=== PATIENT | male | born 2000 | race African-American/Black ===

== ENCOUNTER 2018-01-03 19:25 | Emergency (ER) | payer MEDICAID ==
[~2018-01-03] VITALS: Ht 188 cm; Wt 93.0 kg
[2018-01-03 20:58] LABS: Basophils # (auto) 0 uL; Basophils % (auto) 0.3 % (0.0-2.0); Eosinophils # (auto) 0 uL; Eosinophils % (auto) 0.4 % (0.0-7.0); Hematocrit 48.8 % (41.0-53.0); Hemoglobin 16.6 g/dL (13.5-17.5); Lymphocytes # (auto) 1.4 uL; Lymphocytes % (auto) 16.9 % (10.0-50.0); Mean Corpuscular Hgb Conc. 34.1 g/dL (32.0-36.0); Mean Corpuscular Volume 91.1 fL (80.0-100.0); Monocytes # (auto) 1.1 uL; Monocytes % (auto) 12.3 % (0.0-12.0); Neutrophils % (auto) 70.1 % (37.0-80.0); Platelet Count (auto) 264 10^3/uL (140-450); Red Blood Cells 5.36 10^6/uL (4.5-5.90); Red Cell Distribution Width 13.7 % (11.8-14.3); White Blood Cell 8.6 10^3/uL (4.4-10.8)
[2018-01-03 21:21] LABS: Albumin 4.1 g/dL (3.4-5.0); BUN/Creatinine Ratio 13.3; Bilirubin, Total 0.4 mg/dL (0.2-1.0); Calcium 8.7 mg/dL (8.5-10.1); Potassium 3.8 mmol/L (3.5-5.1); Total Protein 7.5 g/dL (6.4-8.2)
[2018-01-04 00:01] LABS: Urine WBC None Seen /hpf (0 - 3)
[2018-01-04 00:18] LABS: Urine Bacteria NONE SEEN /hpf (None Seen); Urine Blood Negative /uL (Negative); Urine Specific Gravity 1.032 (1.001-1.035)
[2018-01-04] MEDS ORDERED: FAMOTIDINE (10MG/ML) 2ML VL IV ONE (04:30)
[2018-01-04] MEDS ORDERED: SODIUM CHLORIDE 0.9% 1,000 ML IV ONE (04:30)
[2018-01-04 05:29] VITALS: BP 110/66
[2018-01-04] MEDS ORDERED: metroNIDAZOLE 500 MG TAB PO ONE (05:30)
== END 2018-01-04 05:20 | disposition home or self-care (01) ==
LOC: ER 19:25
DX: K29.70 Gastritis, unspecified, without bleeding (principal); T78.40XA Allergy, unspecified, initial encounter
CPT/HCPCS: 36415; 74176; 80053; 81001; 82150; 83690; 85025; 96374; 99285; J3490; J7030

== ENCOUNTER 2018-05-02 13:37 | Emergency (ER) | payer SELFPAY ==
[~2018-05-02] VITALS: Ht 188 cm; Wt 77.1 kg
[2018-05-02] MEDS ORDERED: SODIUM CHLORIDE 0.9% 1,000 ML IVB ONE (13:47)
[2018-05-02] MEDS ORDERED: LORazepam 2MG/ML-1ML VIAL IV ONE (14:00)
[2018-05-02 14:30] LABS: Basophils # (auto) 0 uL; Basophils % (auto) 0.5 % (0.0-2.0); Eosinophils # (auto) 0.1 uL; Eosinophils % (auto) 0.8 % (0.0-7.0); Hematocrit 50.1 % (41.0-53.0); Hemoglobin 16.8 g/dL (13.5-17.5); Lymphocytes # (auto) 1.8 uL; Lymphocytes % (auto) 20.6 % (10.0-50.0); Mean Corpuscular Hemoglobin 30.6 pg (28.0-32.0); Mean Corpuscular Hgb Conc. 33.5 g/dL (32.0-36.0); Mean Corpuscular Volume 91.4 fL (80.0-100.0); Monocytes # (auto) 0.8 uL; Monocytes % (auto) 8.6 % (0.0-12.0); Neutrophils # (auto) 6.1 uL; Neutrophils % (auto) 69.5 % (37.0-80.0); Platelet Count (auto) 291 10^3/uL (140-450); Red Blood Cells 5.48 10^6/uL (4.5-5.90); White Blood Cell 8.8 10^3/uL (4.4-10.8)
[2018-05-02 14:44] LABS: Anion Gap 8 (5-15); Blood Urea Nitrogen 14 mg/dL (7-18); Calcium 8.4 mg/dL (8.5-10.1); Carbon Dioxide 24 mmol/L (21-32); Chloride 106 mmol/L (98-107); Glucose 111 mg/dL (74-106); Sodium 138 mmol/L (136-145)
[2018-05-02 14:49] LABS: Alanine Aminotransferase 25 U/L (16-61); Alkaline Phosphatase 88 U/L (45-117); Aspartate Aminotransferase 15 U/L (15-37); BUN/Creatinine Ratio 10.9; Bilirubin, Total 0.5 mg/dL (0.2-1.0); Blood Alcohol < 3.0 mg/dL (0-5); GFR African American 92 mL/min; GFR Non-African American 76 mL/min; Magnesium 2.5 mg/dL (1.6-2.6); Total Protein 7.4 g/dL (6.4-8.2)
[2018-05-02] MEDS ORDERED: ACETAMINOPHEN 500 MG TAB PO ONE (15:45)
[2018-05-02 15:46] VITALS: BP 110/63
[2018-05-02 15:57] LABS: Alcohol, Urine < 3.0 mg/dL (0-5); Amphetamine Screen, Urine NEGATIVE (NEGATIVE); Barbiturate Scree,Urine NEGATIVE (NEGATIVE); Benzodiazephine Screen, Urine NEGATIVE (NEGATIVE); Cannabinoid Screen, Urine NEGATIVE (NEGATIVE); Cocaine Screen, Urine NEGATIVE (NEGATIVE); Opiate Scree,Urine NEGATIVE (NEGATIVE); Phencyclidine Screen, Urine NEGATIVE (NEGATIVE)
[2018-05-02 15:58] LABS: Urine Amorphous Crystal FEW /hpf (None Seen); Urine Bacteria NONE SEEN /hpf (None Seen); Urine Blood Negative /uL (Negative); Urine Mucus FEW (None Seen); Urine Specific Gravity 1.022 (1.001-1.035); Urine WBC 3 /hpf (0 - 3)
[2018-05-02] MEDS ORDERED: LEVETIRACETAM 500 MG TAB PO ONE (16:30)
== END 2018-05-02 16:29 | disposition home or self-care (01) ==
LOC: EDBD 13:37 → ER 13:45
DX: R56.9 Unspecified convulsions (principal); R41.82 Altered mental status, unspecified
CPT/HCPCS: 36415; 70450; 71046; 80053; 80307; 80320; 81001; 83735; 84443; 85025; 93005; 96361; 96374; 99284; J2060; J7030